=== PATIENT | male | born 1990 | race African-American/Black ===

== ENCOUNTER 2019-06-28 09:35 | Emergency (ER) | payer SELFPAY ==
[~2019-06-28] VITALS: Ht 180.3 cm; Wt 72.6 kg
[2019-06-28 09:37] VITALS: BP 115/60
--- NOTE | 2019-06-28 09:59 | Emergency Room Report ---
History of Present Illness General Chief Complaint: General Complaint Source: Patient Present Illness HPI 28-year-old male asymptomatic had unprotected sex 1 week ago, requesting STD check, he denies any fevers chills chest pain shortness of breath patient denies any dysuria patient only wants an STD check, aggravating factors protected sex alleviating factors none, severity mild Allergies: Coded Allergies: No Known Allergies (Unverified , 06/28/19) Patient History Past Medical History: see triage record Reviewed Nursing Documentation: PMH: Agreed; PSxH: Agreed Nursing Documentation-PMH Past Medical History: No Stated History Review of Systems All Other Systems: negative except mentioned in HPI Physical Exam Vital Signs Date Time Temp Pulse Resp B/P (MAP) Pulse Ox O2 Delivery O2 Flow Rate FiO2 06/28/19 09:37 98.2 66 16 115/60 (78) 97 Room Air Sp02 EP Interpretation: reviewed, normal General Appearance: well appearing, no apparent distress, alert Head: normocephalic, atraumatic Eyes: bilateral eye PERRL, bilateral eye EOMI Neck: supple, thyroid normal, supple/symm/no masses Respiratory: no respiratory distress, no retraction, no accessory muscle use Gastrointestinal: non tender, soft, no guarding, no rebound Genitourinary: penis normal, prostate normal, scrotum normal, 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[employer] Musculoskeletal: normal inspection Neurologic: alert, oriented x3 Psychiatric: mood/affect normal Skin: no rash, warm/dry Medical Decision Making Diagnostic Impression: Primary Impression: Screen for STD (sexually transmitted disease) ER Course Patient wants STD check, will send labs Dispo home w return precautions Last Vital Signs Date Time Temp Pulse Resp B/P (MAP) Pulse Ox O2 Delivery O2 Flow Rate FiO2 06/28/19 09:42 76 15 Room Air 06/28/19 09:37 98.2 115/60 97 Disposition: HOME, SELF-CARE Condition: Stable Scripts No Active Prescriptions or Reported Meds Referrals: [facility] Liliane Stone. [facility] Patient Instructions: Safe Sex, Sexually Transmitted Disease, [id number] Additional Instructions: The patient was provided with discharge instructions, notified to follow-up with a primary care doctor and or specialist in the next 24-48 hours, and to return to the ED if they have worsening of their symptoms. Please note that this report is being documented using DRAGON technology. This can lead to erroneous entry secondary to incorrect interpretation by the dictating instrument. Doni Vee MD Jun 28, 2019 09:59
[2019-06-28 10:08] VITALS: BP 125/76
--- NOTE | 2019-06-28 10:08 | NUR ---
ER DISCHARGE NOTE: Pt was seen for STD eval. Patient is cleared to be discharged per ERMD, pt is aox4, on room air, with stable vital signs. pt was given dc instructions, pt was able to verbalize understanding, pt id band removed. pt is able to ambulate with steady gait. pt took all belongings.
--- NOTE | 2019-06-28 10:08 | NUR ---
ED Nurse Note: Dr Nanda hopper to discharge pt without urine test result.
== END 2019-06-28 10:08 | disposition home or self-care (01) ==
LOC: EMR 09:59
DX: Z11.3 Encounter for screening for infections with a predominantly sexual mode of transmission (principal)
CPT/HCPCS: 87590; 99283